=== PATIENT | male | born 1955 | race Caucasian/White ===

== ENCOUNTER 2023-03-21 22:14 | Emergency (ER) | payer MEDICARE ==
[~2023-03-21] VITALS: Ht 180.3 cm; Wt 75.0 kg
[2023-03-21] MEDS ORDERED: LIPITOR40 MG PO (22:36)
[2023-03-21] MEDS ORDERED: EPLERENONE25 MG PO (22:36)
[2023-03-21] MEDS ORDERED: CLOPIDOGREL75 MG PO (22:36)
[2023-03-21] MEDS ORDERED: VITAMIN D-40010 MCG PO (22:37)
[2023-03-22 00:20] VITALS: BP 162/106
== END 2023-03-22 00:25 | disposition home or self-care (01) ==
LOC: ED 22:14
DX: J39.2 Other diseases of pharynx (principal); T50.0X5A Adverse effect of mineralocorticoids and their antagonists, initial encounter; I10 Essential (primary) hypertension; E78.00 Pure hypercholesterolemia, unspecified; Z88.8 Allergy status to other drugs, medicaments and biological substances; Z88.0 Allergy status to penicillin; Z88.6 Allergy status to analgesic agent; Z88.1 Allergy status to other antibiotic agents; Z79.899 Other long term (current) drug therapy
CPT/HCPCS: 99284-25